=== PATIENT | female | born 1955 | race Caucasian/White ===

== ENCOUNTER → 2025-03-24 | Outpatient (CLI) | payer MEDICARE ==
--- NOTE | 2025-03-24 13:54 | CTL ---
EXAMINATION TYPE: CT Low Dose Lung DATE OF EXAM ORDERED: 03/24/2025 COMPARISON: None CLINICAL INDICATION: Female, 70 years old with history of Z12.2 SCREENING LUNG CA, F17.210 NICOTINE D EPENDEN; PHH, personal tobacco use, Lung cancer screening, History of Smoking/tobacco use. TECHNIQUE: Low dose computed tomography scan was performed through the chest at 1 mm thick sections a nd reconstructed images in multiple planes at 1 mm and [address] DLP: 82.[address] CTDI: 2.6 mGy Automated exposure control for dose reduction was used. CT DIAGNOSTIC QUALITY: Satisfactory FINDINGS: EXAMINATION TYPE: CT Low Dose Lung DATE OF EXAM ORDERED: 03/24/2025 CLINICAL INDICATION: Female, 70 years old with history of Z12.2 SCREENING LUNG CA, F17.210 NICOTINE D EPENDEN, history of tobacco use, Lung cancer screening CT DLP: 82.[address] CTDI: 2.6 mGy Automated exposure control for dose reduction was used. Comparison: None TECHNIQUE: Low dose computed tomography scan was performed through the chest at 1 mm thick sections a nd reconstructed images in multiple planes at 1 mm and [address] DIAGNOSTIC QUALITY: Satisfactory FINDINGS: There are scattered areas of fine reticular densities particularly in the lower lobes. There is diffu se groundglass opacity in the upper lobes right greater than left. In the right lung apex there is an ill-defined 9 to 10 mm nodular density which is suspicious for malignancy. There is no airspace consolidation There is no pleural effusion or pneumothorax. There is an enlarged 2.2 cm precarinal lymph node. Eval uation for hilar adenopathy is limited due to lack of contrast. Limited scanning through the upper abdomen reveals mild ascites adjacent to the liver edge. There is a mild to moderate endplate compression fracture in the lower thoracic spine. IMPRESSION: 1. Lung Rads Category 4X. Highly suspicious for malignancy. PET scan is recommended for further evalu ation. 2.2 cm precarinal enlarged lymph node. 2. Chronic changes as described above with scattered reticular densities in the lower lobes and signi ficant groundglass opacity in the upper lobes, right greater than left. 3. Mild ascites [facility], , 03/24/2025 1:52 PM
== END | disposition home or self-care (01) ==
LOC: RADCTMAIN 13:12
PROVIDERS: ATTEND Internal Medicine Hematology & Oncology
DX: Z12.2 Encounter for screening for malignant neoplasm of respiratory organs (principal); F17.210 Nicotine dependence, cigarettes, uncomplicated; J98.4 Other disorders of lung; R18.8 Other ascites; R59.9 Enlarged lymph nodes, unspecified
CPT/HCPCS: 71271

== ENCOUNTER → 2025-04-03 | Outpatient (CLI) | payer MEDICARE ==
--- NOTE | 2025-04-03 14:58 | PE ---
EXAMINATION TYPE: PET CT fusion skull to thigh DATE OF EXAM: 04/03/2025 CLINICAL INDICATION:Female, 70 years old with history of R91.8 Abn Findings lung field; TECHNIQUE: Following the intravenous administration of 10.74 mCi of F-18 FDG, whole body images are performed from the skull base to the Mid thigh. Images are reviewed on the computer in the coronal, axial, and sagittal planes. Reconstructed rotating images are created on independent workstation an d reviewed on the computer. A non-contrast CT is performed in conjunction with the PET scan. Glucos e level 122 mg/dL CT DLP: 758 mGycm, Automated exposure control for dose reduction was used. COMPARISON: CT 03/24/2025., PET/CT None, MRI: None FINDINGS: Mediastinal SUV mean is 1.8. Hepatic parenchyma SUV mean is 2.1. SKULL BASE AND NECK: Focus of uptake within the right prior gland superficial aspect posteriorly. Measuring 4 mm. CHEST, MEDIASTINUM, AND HILAR REGION: Right upper lobe 9 mm speculated nodule Max SUV 1.9. No evidence for lymphadenopathy or mass. ABDOMEN AND PELVIS: Right hepatic lobe subtle hypodense lesion on the background of Cirrhosis measuring 28 mm lesion max SUV 3.2 and another more inferiorly measuring 31 mm max SUV 3.0. These do not definitely have focal uptake compared to background. MUSCULOSKELETAL STRUCTURES: No suspicious radiotracer activity. OTHER CT: Bilateral aphakia. Heterogenous thyroid gland bilaterally. Atherosclerosis of the arterial vasculature. Severe coronary artery atherosclerosis. Aortic valve con sultations are moderate to severe. The gallbladder surgically absent. There is small ascites in the a bdomen. Nodular contour to liver. IMPRESSION: 1. Right upper lobe spiculated nodule with mild uptake concerning for early malignancy. No evidence for metastatic disease at this time. No other suspicious uptake identified. 2. Evidence of hepatic cirrhosis with low-density masslike areas which are indeterminate. Further wo rkup with MRI liver mass protocol with contrast recommended. 3. 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 Cons ider ultrasound evaluation. [facility], , 04/03/2025 2:56 PM
== END | disposition home or self-care (01) ==
LOC: RADPETMAIN 12:24
PROVIDERS: ATTEND Internal Medicine Hematology & Oncology
DX: R91.8 Other nonspecific abnormal finding of lung field (principal); K74.60 Unspecified cirrhosis of liver
CPT/HCPCS: 78815; A9552